=== PATIENT | male | born 1965 | race Caucasian/White ===

== ENCOUNTER 2016-08-30 10:01 | Emergency (ER) | payer MEDICAID ==
[~2016-08-30] VITALS: Ht 190.5 cm; Wt 92.0 kg
[~2016-08-30 10:01] MED LIST: GABA100C4 PO; MAGN400C2 PO; PERC10TA27 PO; POTA-267 PO; XANA1TAB6 PO; ZITH500T PO
[2016-08-30 10:07] VITALS: BP 132/83; PULSE 103; RESP 16; TEMP 98.4; O2SAT 92
[2016-08-30] MEDS ORDERED: PERC5TAB12 PO (10:31)
[2016-08-30] MEDS ORDERED: [UNRECOGNIZED DRUG - OTHER] PO (10:31)
[2016-08-30] MEDS ORDERED: ZOME4INJ PO (10:31)
[2016-08-30] MEDS ORDERED: HYDR-3535 PO (10:31)
--- NOTE | 2016-08-30 10:35 | PD ---
HPI Chief Complaint: Musculoskeletal Complaint Time Seen by Provider: 10:26 Travel History International Travel<30 days: No Contact w/Intl Traveler<30days: No Traveled to known affect area: No History of Present Illness HPI 50-year-old male with history of lymphoma and recent diagnosis a urine half ago of arrhythmia type of leukemia with agranulocytosis currently following up at [facility], has history of chronic intermittent joint and lymph node swelling, presents to the ER today for 4 days history of right knee swelling worse with movement that started on his own. He states that it often happens when he is sitting in a car. He denies any injuries. He denies any new fevers , vomiting, or any other symptoms. He states that it usually does not get this bad and he had talked to his pain management doctor and has been told to come to the ER to get it "drained". Patient states that his pain is currently a 10 out of 10. He has been using several pain medications previously prescribed but it is not significantly improving pain. He states that the last time he had something similar to this with knee swelling, it took 2 Months to go away. Modifying Factors: None Associated Signs & Symptoms: Right knee swelling for 4 days Risk Factors: History of leukemia with agranulocytosis PFSH Past Medical History Arthritis: No Asthma: No Autoimmune Disease: No Blood Disorders: No Anxiety: Yes Depression: Yes Heart Rhythm Problems: No Cancer: Yes (T GRANULAR LYMPHOCYTOSIS) Cardiovascular Problems: Yes High Cholesterol: Yes Chest Pain: Yes Congestive Heart Failure: No COPD: No Cerebrovascular Accident: No Diabetes: Yes (borderline) Diminished Hearing: No Endocrine: No Gastrointestinal Disorders: No GERD: No Genitourinary: No Headaches: No Hepatitis: No Hiatal Hernia: No Hypertension: No Immune Disorder: No Implanted Vascular Access Dvce: No Musculoskeletal: Yes Neurologic: Yes Psychiatric: Yes (BIPOLAR) Reproductive: No Respiratory: Yes Immunizations Current: Yes Migraines: No Seizures: No Sleep Apnea: No Ulcer: No Past Surgical History Abdominal Surgery: Yes (SPLENECTOMY) AICD: No Cardiac Surgery: Yes (heart cath) Ear Surgery: No Endocrine Surgery: No Eye Surgery: No Genitourinary Surgery: No Gynecologic Surgery: No Neurologic Surgery: No Oral Surgery: No Pacemaker: No Thoracic Surgery: Yes Other Surgery: Yes Social History Alcohol Use: No Tobacco Use: Yes (1 ppd) Substance Use: No Allergies-Medications (Allergen,Severity, Reaction): Coded Allergies: Penicillin (Verified Allergy, Unknown, Anaphylaxis, 08/30/16) Reported Meds & Prescriptions Reported Meds & Active Scripts Active Reported [revlomine] 1 Tab PO DIRECTED Zometa Inj (Zoledronic Acid) 4 Mg/100 Ml Inj 4 Mg PO QOD Percocet (Oxycodone-Acetaminophen) 5-325 mg Tab 1 Tab PO Q4H PRN Lortab (Hydrocodone-Acetaminophen) 10-325 Mg Tab 1 Tab PO Q4H PRN Review of Systems Except as stated in HPI: all other systems reviewed are Neg Physical Exam Narrative GENERAL: Well-developed middle age white male patient currently not in acute distress on evaluation. He tries to keep his right leg from bending as he seats himself in the bed. Awake, alert, oriented 3. SKIN: Focused skin assessment warm/dry. HEAD: Atraumatic. Normocephalic. EYES: Pupils equal and round. No scleral icterus. No injection or drainage. ENT: No nasal bleeding or discharge. Mucous membranes pink and moist. NECK: Trachea midline. No JVD. CARDIOVASCULAR: Regular rate and rhythm. No murmur appreciated. RESPIRATORY: No accessory muscle use. Clear to auscultation. Breath sounds equal bilaterally. GASTROINTESTINAL: Abdomen soft, non-tender, nondistended. Hepatic and splenic margins not palpable. MUSCULOSKELETAL: No obvious deformities. No clubbing. No cyanosis. No edema. NEUROLOGICAL: Awake and alert. No obvious cranial nerve deficits. Motor grossly within normal limits. Normal speech. PSYCHIATRIC: Appropriate mood and affect; insight and judgment normal. Right leg: There is notable edema and joint effusion of the right knee. No crepitus or other deformities identified. Neurovascularly intact. He is unable to range right knee secondary to pain. Data Data Last Documented VS Vital Signs Date Time Temp Pulse Resp B/P Pulse Ox O2 Delivery O2 Flow Rate FiO2 08/30/16 10:07 98.4 103 16 132/83 92 Orders Complete Blood Count With Diff (08/30/16 10:26) Basic Metabolic Panel (Bmp) (08/30/16 10:26) Fluid Culture And Gram Stain (08/30/16 10:26) Synovial Fl Cell Count + Diff (08/30/16 10:28) Synovial Fluid Crystals (08/30/16 10:28) Synovial Fluid Total Protein (08/30/16 10:28) Knee, Complete (4vws) (08/30/16 10:35) Hydromorphone Pf Inj (Dilaudid Pf Inj) (08/30/16 10:45) Ondansetron Inj (Zofran Inj) (08/30/16 10:45) Lidocaine 1% Inj (50 Ml) (Xylocaine 1% I (08/30/16 11:45) Blood Culture (08/30/16 12:33) Ceftriaxone Inj (Rocephin Inj) (08/30/16 12:45) Vancomycin Inj (Vancomycin Inj) (08/30/16 12:45) Labs Laboratory Tests Test 08/30/16 08/30/16 10:54 11:57 White Blood Count 18.5 TH/MM3 Red Blood Count 5.70 MIL/MM3 Hemoglobin 17.1 GM/DL Hematocrit 52.2 % Mean Corpuscular Volume 91.6 FL Mean Corpuscular Hemoglobin 30.0 PG Mean Corpuscular Hemoglobin 32.7 % Concent Red Cell Distribution Width 14.3 % Platelet Count 525 TH/MM3 Mean Platelet Volume 8.1 FL Neutrophils (%) (Auto) 66.5 % Lymphocytes (%) (Auto) 23.3 % Monocytes (%) (Auto) 6.2 % Eosinophils (%) (Auto) 2.1 % Basophils (%) (Auto) 1.9 % Neutrophils # (Auto) 12.2 TH/MM3 Lymphocytes # (Auto) 4.3 TH/MM3 Monocytes # (Auto) 1.1 TH/MM3 Eosinophils # (Auto) 0.4 TH/MM3 Basophils # (Auto) 0.4 TH/MM3 CBC Comment DIFF FINAL Differential Comment Sodium Level 138 MEQ/L Potassium Level 3.4 MEQ/L Chloride Level 101 MEQ/L Carbon Dioxide Level 28.1 MEQ/L Anion Gap 9 MEQ/L Blood Urea Nitrogen 9 MG/DL Creatinine 0.93 MG/DL Estimat Glomerular Filtration 86 ML/MIN Rate Random Glucose 116 MG/DL Calcium Level 9.3 MG/DL Synovial Fluid Color RED Synovial Fluid Appearance MODERATE Synovial Fluid WBC 65339 /MM3 Synovial Fluid RBC 02270 /MM3 Synovial Fluid Neutrophils 85 % Synovial Fluid Lymphocytes 14 % Synovial Fluid Monocytes 1 % MDM Medical Decision Making Medical Screen Exam Complete: Yes Emergency Medical Condition: Yes Medical Record Reviewed: Yes Interpretation(s) Laboratory Tests Test 08/30/16 08/30/16 10:54 11:57 White Blood Count 18.5 TH/MM3 (4.0-11.0) Hemoglobin 17.1 GM/DL (13.0-17.0) Hematocrit 52.2 % (39.0-51.0) Platelet Count 525 TH/MM3 (150-450) Neutrophils # (Auto) 12.2 TH/MM3 (1.8-7.7) Monocytes # (Auto) 1.1 TH/MM3 (0-0.9) Basophils # (Auto) 0.4 TH/MM3 (0-0.2) Potassium Level 3.4 MEQ/L (3.5-5.1) Estimat Glomerular Filtration 86 ML/MIN (>89) Rate Random Glucose 116 MG/DL (74-106) Synovial Fluid Color RED (STRAW) Synovial Fluid Appearance MODERATE (CLEAR) Synovial Fluid WBC 96807 /MM3 (0-200) Synovial Fluid RBC 03718 /MM3 (0-0) Synovial Fluid Neutrophils 85 % (0-25) Differential Diagnosis Right knee painacute on chronic joint effusions versus gouty arthritis versus septic arthritis Narrative Course I have talked to the patient regarding concern for possible septic arthritis. However, there is also concerned that with his history, it increases to a chance that we can introduce infection if we tapped the knee. Patient states understanding, would like me to tap the knee to rule out infection and also for for some relief of the pressure. Procedure was done draining 30 cc of initially blood-tinged fluid which cleared to a straw-colored. Fluid was sent for laboratory analysis. It shows elevated neutrophil counts of 13,000. The case was discussed with Dr. Frank biometrics consultant for orthopedics and he states that he does not think that this is secondary to septic arthritis and that this is inflammatory change. At this point, patient had been given ceftriaxone as precaution IV in the ER. He has taken Keflex in the past without issues. Dr. Frank also recommends heat application. My plan would be to release patient with follow-up to his physician and all colleges. Return for any worsening in pain, fevers, symptoms as needed. The plan has discussed with the patient and he states understanding. Continue using current pain medication as needed for pain. Decreased weightbearing on the right leg. Elevate but did not use ice. Procedures Procedure Narrative Right knee arthrocentesis. Patient's right knee was placed in a mildly flexed position using towels. Area was cleaned with iodine. And 2 cc of 1% lidocaine local was given to the right lateral knee. 18-gauge needle was used to access the joint and 30 cc of fluid was drained. Sent for analysis. Gauze was placed over area and Pramod bandage was used to give compression. Patient tolerated procedure well. Diagnosis Primary Impression: Effusion, right knee Disposition: 01 DISCHARGE HOME Condition: Stable Jamel Marie MD Aug 30, 2016 10:35
[2016-08-30] MEDS ORDERED: ONDANSETRON HCL 4 MG/2 ML VIAL IV PUSH ONE (10:45)
[2016-08-30] MEDS ORDERED: HYDROmorphone HCL PF 1 MG/ML VIAL IV PUSH ONE (10:45)
[2016-08-30 11:04] LABS: AUTOMATED NEUTROPHIL # 12.2 TH/MM3 (1.8-7.7); BASOPHIL # 0.4 TH/MM3 (0-0.2); BASOPHIL % 1.9 % (0.0-2.0); EOSINOPHIL # 0.4 TH/MM3 (0-0.4); EOSINOPHIL % 2.1 % (0.0-4.0); HEMATOCRIT 52.2 % (39.0-51.0); LYMPH % 23.3 % (9.0-44.0); LYMPHOCYTE # 4.3 TH/MM3 (1.0-4.8); MEAN CELL VOLUME 91.6 FL (80.0-100.0); MEAN CORPUSCULAR HGB CONC 32.7 % (32.0-36.0); MONO % 6.2 % (0.0-8.0); NEUT % 66.5 % (16.0-70.0); PLATELET COUNT 525 TH/MM3 (150-450); RED CELL DISTRIBUTION WIDTH 14.3 % (11.6-17.2); WHITE BLOOD COUNT 18.5 TH/MM3 (4.0-11.0)
[2016-08-30 11:05] LABS: HEMO FLAGS DIFF FINAL
[2016-08-30 11:17] LABS: POTASSIUM 3.4 MEQ/L (3.5-5.1)
[2016-08-30 11:21] LABS: BICARBONATE 28.1 MEQ/L (21.0-32.0)
[2016-08-30] MEDS ORDERED: LIDOCAINE HCL 1% 50 ML VIAL INFIL ONE (11:45)
--- NOTE | 2016-08-30 11:58 | RADHPO ---
EXAM DATE/TIME: 08/30/2016 10:48 [facility] COMPARISON: No previous studies available for comparison. INDICATIONS : Swelling and pain right knee, no known injury MEDICAL HISTORY : Leukemia. SURGICAL HISTORY : None. ENCOUNTER: Initial ACUITY: 4 - 6 days PAIN SCORE: 10/10 LOCATION: Right knee FINDINGS: The knee joint is properly aligned. There is chondrocalcinosis seen at the medial and lateral joint compartments. There is a moderate effusion. No fracture is seen. CONCLUSION: Chondrocalcinosis and a moderate joint effusion. Stevie Garcia MD on August 30, 2016 at 11:37 Board Certified Radiologist. This report was verified electronically.
[2016-08-30 12:32] LABS: WBC, SYNOVIAL FLUID 13100 /MM3 (0-200)
[2016-08-30] MEDS ORDERED: VANCOMYCIN INJ 1,000 MG in SODIUM CHLOR 0.9% 250 ML INJ 250 ML IV ONE (12:45)
[2016-08-30] MEDS ORDERED: cefTRIAXone INJ 2,000 MG in SODIUM CHLORIDE 0.9% INJ 100 ML IV ONE (12:45)
[2016-08-30 13:59] VITALS: BP 130/76
== END 2016-08-30 14:01 | disposition home or self-care (01) ==
LOC: PHED 10:01
DX: M25.461 Effusion, right knee (principal); E78.00 Pure hypercholesterolemia, unspecified; E11.9 Type 2 diabetes mellitus without complications
CPT/HCPCS: 20610; 73564; 80048; 84157; 85025; 87040; 87070; 87205; 89051; 89060; 96365; 96375; 99283; J0696; J1170; J2405

== ENCOUNTER 2016-10-22 15:49 | Emergency (ER) | payer MEDICAID ==
[~2016-10-22] VITALS: Ht 190.5 cm; Wt 91.0 kg
[~2016-10-22 15:49] MED LIST changes: -GABA100C4 PO; +HYDR-3535 PO; -MAGN400C2 PO; -PERC10TA27 PO; +PERC5TAB12 PO; -POTA-267 PO; -XANA1TAB6 PO; -ZITH500T PO; +ZOME4INJ PO; +[UNRECOGNIZED DRUG - OTHER] PO
[2016-10-22 15:53] VITALS: BP 100/75; PULSE 118; RESP 16; TEMP 97.8; O2SAT 93
[2016-10-22] MEDS ORDERED: OXYC30TA62 PO (16:15)
[2016-10-22] MEDS ORDERED: PERC10TA27 PO (16:15)
[2016-10-22] MEDS ORDERED: DOXY100C PO (16:15)
[2016-10-22] MEDS ORDERED: BACL10TA PO (16:16)
[2016-10-22] MEDS ORDERED: LIDOCAINE HCL 1% 50 ML VIAL INFIL ONE (16:30)
--- NOTE | 2016-10-22 17:04 | PD ---
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 Patient states swelling did not develop until last night. He denies any trauma or injury. States he went to his pain management physician this morning and they told him that he needs to come to the emergency room to have his knee drained. Patient takes OxyContin and Percocet daily for pain and took his medications this morning with minimal relief. He reports paresthesias when he ambulates. Patient reports extreme pain with full extension but minimal pain with flexion. Denies fever, chills, nausea, and vomiting. States he had similar symptoms one month ago and had an arthrocentesis performed here with moderate relief in symptoms. 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) Cardiovascular Problems: Yes High Cholesterol: Yes Chest Pain: Yes Congestive Heart Failure: No COPD: No Cerebrovascular Accident: No Diminished Hearing: No Endocrine: No Gastrointestinal Disorders: No GERD: No Genitourinary: No Headaches: No Hepatitis: No Hiatal Hernia: No Hypertension: No Immune Disorder: No Implanted Vascular Access Dvce: No Musculoskeletal: Yes Neurologic: Yes Psychiatric: Yes (BIPOLAR) Reproductive: No Respiratory: Yes Immunizations Current: Yes Migraines: No Seizures: No Sleep Apnea: No Ulcer: No Tetanus Vaccination: > 5 Years Influenza Vaccination: No Past Surgical History Abdominal Surgery: Yes (SPLENECTOMY) AICD: No Cardiac Surgery: Yes (heart cath) Ear Surgery: No Endocrine Surgery: No Eye Surgery: No Genitourinary Surgery: No Gynecologic Surgery: No Neurologic Surgery: No Oral Surgery: No Pacemaker: No Thoracic Surgery: Yes Other Surgery: Yes Social History Alcohol Use: Yes Tobacco Use: Yes (2 pk) Substance Use: No Allergies-Medications (Allergen,Severity, Reaction): Coded Allergies: Penicillin (Verified Allergy, Unknown, Anaphylaxis, 10/22/16) Reported Meds & Prescriptions Reported Meds & Active Scripts Active Ibuprofen 800 Mg Tab 800 Mg PO Q8H PRN Keflex (Cephalexin) 500 Mg Capsule 500 Mg PO Q6H 10 Days Reported Baclofen 10 Mg Tab 10 Mg PO Q8HR PRN Doxycycline Hyclate 100 Mg Cap 100 Mg PO TID Oxycontin (Oxycodone HCl) 30 Mg Tab 30 Mg PO Q8HR Percocet (Oxycodone-Acetaminophen) 10-325 mg Tab 1 Tab PO TID PRN Review of Systems Except as stated in HPI: all other systems reviewed are Neg Physical Exam Narrative GENERAL: Well-nourished, well-developed male in no acute distress. Afebrile. SKIN: Focused skin assessment warm/dry. No erythema or ecchymosis. HEAD: Normocephalic. EYES: No scleral icterus. No injection or drainage. NECK: Supple, trachea midline. No JVD or lymphadenopathy. CARDIOVASCULAR: Regular rate and rhythm without murmurs, gallops, or rubs. RESPIRATORY: Breath sounds equal bilaterally. No accessory muscle use. MUSCULOSKELETAL: No cyanosis. Mild to moderate edema of the right knee. Limited extension. Patient can flex to 90. 2+ dorsalis pedis pulse. Full range of motion of the ankle and foot. Extreme tenderness to palpation of medial and lateral subpatellar area. Data Data Last Documented VS Vital Signs Date Time Temp Pulse Resp B/P Pulse Ox O2 Delivery O2 Flow Rate FiO2 10/22/16 17:08 91 20 123/80 92 Room Air 10/22/16 15:53 97.8 Orders Lidocaine 1% Inj (50 Ml) (Xylocaine 1% I (10/22/16 16:30) Knee, Ltd (1 Or 2vws) (10/22/16 ) Oxycodone-Acetamin 7.5-325 Mg (Percocet (10/22/16 17:15) Ketorolac Inj (Toradol Inj) (10/22/16 17:45) Cephalexin (Keflex) (10/22/16 17:45) Synovial Fl Cell Count + Diff (10/22/16 17:43) Synovial Fluid Crystals (10/22/16 17:43) Synovial Fluid Glucose (10/22/16 17:43) Synovial Fluid Total Protein (10/22/16 17:43) Fluid Culture And Gram Stain (10/22/16 17:30) Labs Laboratory Tests Test 10/22/16 17:30 Synovial Fluid Color RED Synovial Fluid Appearance HAZY Synovial Fluid WBC 362 /MM3 Synovial Fluid RBC 5491 /MM3 Synovial Fluid Neutrophils 97 % Synovial Fluid Lymphocytes 3 % Synovial Fluid Crystals NONE MDM Medical Decision Making Medical Screen Exam Complete: Yes Emergency Medical Condition: Yes Medical Record Reviewed: Yes Differential Diagnosis Effusion, hemarthrosis, fracture, traumatic effusion, septic arthritis unlikely Narrative Course 50-year-old male presents to the emergency room for evaluation of recurrent right knee effusion. Patient has history of large granular lymphocytosis and states the cause of his effusions are likely due to the leukemia. He is afebrile well-appearing in the emergency room. Vital signs stable. Physical exam reveals moderate tenderness to palpation of the knee. No erythema or ecchymosis. Mild to moderate edema and slight effusion noted. Patient can flex 90 but cannot perform full extension secondary to pain. Right lower extremity is neurovascularly intact with 2+ dorsalis pedis pulse. After arthrocentesis, patient reported minimal relief in pain. He was then given Toradol and Keflex. Synovial fluid shows significantly fewer WBC and RBC as compared to previous joint aspiration though WBC count is spurious because of clot. I have no concern for septic arthritis. Because patient is immunocompromised an arthrocentesis was performed, he'll be discharged with prescription for Keflex. Also given ibuprofen. Told to follow-up with his primary care physician or return for worsening symptoms. He understands and agrees to plan. Procedures Procedure Narrative Right knee arthrocentesis: Patient's right knee was placed in a mildly flexed position using towels. Area was cleaned with Betadine and sterilely draped. 2 cc of 1% lidocaine was used to anesthetize the skin of the medial knee. An 18- gauge needle was used to access the joint and 3 cc of fluid was drained. Fluid was sent for analysis. Gauze and triple antibiotic ointment was placed over area and Pramod bandage was used to give compression. Patient tolerated procedure well. Diagnosis Primary Impression: Effusion, right knee Referrals: Primary Care Physician Patient Instructions: General Instructions, Swollen Knee Joint (ED) Additional Instructions: Rest and drink plenty of fluids. Take Keflex as directed, until gone. Take ibuprofen with food as directed, as needed for pain. Apply heat and ice to the affected area for 20 minutes at a time, as needed for pain and swelling. Follow-up with a primary care physician. Return to the emergency room for worsening symptoms. Scripts Ibuprofen 800 Mg [id number] Mg PO Q8H PRN (PAIN 1 TO 10 AND/OR AGITATION) #50 TAB Ref 0 Prov:Ishmael Owens MD 10/22/16 Cephalexin (Keflex)500 Mg [id number] Mg PO Q6H 10 Days Ref 0 Prov:Ishmael Owens MD 10/22/16 Disposition: 01 DISCHARGE HOME Condition: Stable Kika Welch Oct 22, 2016 17:04
[2016-10-22 17:08] VITALS: BP 123/80; PULSE 91; RESP 20; O2SAT 92
[2016-10-22] MEDS ORDERED: oxyCODONE/ACETAMINOPHEN 7.5 MG/325 MG TAB PO ONE (17:15)
[2016-10-22] MEDS ORDERED: CEPH-460 PO (17:32)
--- NOTE | 2016-10-22 17:34 | RADHPO ---
EXAM DATE/TIME: 10/22/2016 16:54 [facility] COMPARISON: No previous studies available for comparison. INDICATIONS : Patient has swelling in right knee since last week. MEDICAL HISTORY : Leukemia. SURGICAL HISTORY : Coronary artery stent. ENCOUNTER: Initial ACUITY: 1 week PAIN SCORE: 10/10 LOCATION: Right knee. FINDINGS: There is a small suprapatellar knee joint effusion. There is no acute fracture or dislocation of the right knee. Mild degenerative changes are noted involving the patellofemoral and femorotibial joints. CONCLUSION: 1. Small suprapatellar knee joint effusion. 2. Mild degenerative changes involving the patellofemoral and femorotibial joints. 3. No acute fracture or dislocation. Fabio Buchanan MD on October 22, 2016 at 17:19 Board Certified Radiologist. This report was verified electronically.
[2016-10-22] MEDS ORDERED: KETOROLAC TROMETHAMINE 60 MG/2 ML (IM) VIAL IM ONE (17:45)
[2016-10-22] MEDS ORDERED: CEPHALEXIN MONOHYDRATE 500 MG CAP PO ONE (17:45)
[2016-10-22] MEDS ORDERED: IBUP800T23 PO (17:56)
[2016-10-22 19:06] LABS: WBC, SYNOVIAL FLUID 362 /MM3 (0-200)
== END 2016-10-22 18:01 | disposition home or self-care (01) ==
LOC: PHEFT 15:49
DX: M25.461 Effusion, right knee (principal); E78.00 Pure hypercholesterolemia, unspecified; Z85.71 Personal history of Hodgkin lymphoma; Z88.0 Allergy status to penicillin; Z95.5 Presence of coronary angioplasty implant and graft
CPT/HCPCS: 20610; 73560; 82945; 84157; 87070; 87205; 89051; 89060; 96372; 99284; J1885

== ENCOUNTER 2016-12-04 14:38 | Inpatient (IN) | payer MEDICAID ==
[2016-12-04] VITALS (9 sets, daily range): BP systolic 112–144; BP diastolic 73–84; PULSE 80–109; RESP 15–22; TEMP 97.7–98.1; O2SAT 92–99
[~2016-12-04] VITALS: Ht 190.5 cm; Wt 93.4 kg
[~2016-12-04 14:38] MED LIST changes: +BACL10TA PO; +CEPH-460 PO; +DOXY100C PO; -HYDR-3535 PO; +IBUP800T23 PO; +OXYC30TA62 PO; +PERC10TA27 PO; -PERC5TAB12 PO; -ZOME4INJ PO; -[UNRECOGNIZED DRUG - OTHER] PO
[2016-12-04] MEDS ORDERED: XANA2TAB2 PO (15:14)
[2016-12-04] MEDS ORDERED: METR-1 PO (15:14)
[2016-12-04] MEDS ORDERED: ZOLO25TA PO (15:14)
[2016-12-04] MEDS ORDERED: [UNRECOGNIZED DRUG - OTHER] (15:14)
--- NOTE | 2016-12-04 15:26 | PD ---
HPI Chief Complaint: General Weakness Time Seen by Provider: 15:07 Travel History International Travel<30 days: No Contact w/Intl Traveler<30days: No Traveled to known affect area: No History of Present Illness HPI Patient is a 50-year-old male who presents the emergency department with complaint of generalized weakness. 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 Camacho. Patient states that he was told that he has "end -stage" and has 18 months to live. Patient has chronic generalized fatigue, malaise, nausea and vomiting, anorexia. Attributes all of the symptoms to his cancer. Patient states that yesterday he fell asleep on the couch and woke up at 4 AM this morning to urinate. He was unable to get up due to generalized fatigue and weakness. He rolled from the couch onto the floor, and was unable to get up. He was incontinent of urine 2. Yelling for family who came to his aid thereafter. Patient states he continues to feel weak and fatigued particularly in his right leg and right knee. These are chronic sites per patient for pain and weakness. None of his symptoms are new, but are certainly worse than they have been for the last several months. 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) Cardiovascular Problems: Yes High Cholesterol: Yes Chest Pain: Yes Congestive Heart Failure: No COPD: No Cerebrovascular Accident: Yes (X's 2) Diabetes: Yes (Borderline ) Patient Takes Glucophage: No Diminished Hearing: No Endocrine: No Gastrointestinal Disorders: No GERD: No Genitourinary: No Headaches: No Hepatitis: No Hiatal Hernia: No Hypertension: No Immune Disorder: No Implanted Vascular Access Dvce: No Medical other: Yes (HYPOKALEMIA) Musculoskeletal: Yes Neurologic: Yes Psychiatric: Yes (BIPOLAR) Reproductive: No Respiratory: Yes Immunizations Current: Yes Migraines: No Seizures: No Sleep Apnea: No Ulcer: No Past Surgical History Abdominal Surgery: Yes (SPLENECTOMY) AICD: No Cardiac Surgery: Yes (heart cath) Ear Surgery: No Endocrine Surgery: No Eye Surgery: No Genitourinary Surgery: No Gynecologic Surgery: No Neurologic Surgery: No Oral Surgery: No Pacemaker: No Thoracic Surgery: Yes Other Surgery: Yes Social History Alcohol Use: No Tobacco Use: Yes (2 pk) Substance Use: No Allergies-Medications (Allergen,Severity, Reaction): Coded Allergies: Penicillin (Verified Allergy, Severe, Anaphylaxis, 12/04/16) Reported Meds & Prescriptions Reported Meds & Active Scripts Active Reported [cancer meds] Xanax (Alprazolam) 2 Mg Tab 2 Mg PO Q8H PRN Zoloft (Sertraline HCl) 25 Mg Tab 25 Mg PO DAILY Flagyl (Metronidazole) 500 Mg Tab 500 Mg PO 5 TIMES A DAY Oxycontin (Oxycodone HCl) 30 Mg Tab 30 Mg PO Q8HR Percocet (Oxycodone-Acetaminophen) 10-325 mg Tab 1 Tab PO TID PRN Review of Systems Except as stated in HPI: all other systems reviewed are Neg Physical Exam Narrative GENERAL: Well-appearing male in no acute distress. SKIN: Focused skin assessment warm/dry. HEAD: Normocephalic. EYES:No scleral icterus. No injection or drainage. ENT: Mucous membranes pink and moist. NECK: Supple CARDIOVASCULAR: Mild tachycardia with heart rate 100 100s, regular rhythm. No murmur appreciated. RESPIRATORY: No accessory muscle use. Clear to auscultation. Breath sounds equal bilaterally. GASTROINTESTINAL: Abdomen soft, non-tender, nondistended. MUSCULOSKELETAL: No obvious deformities. No edema. NEUROLOGICAL: Awake and alert. 4+ out of 5 strength in the bilateral upper lower extremity's. No focal weakness. Normal speech. PSYCHIATRIC: Appropriate mood and affect; insight and judgment normal. Data Data Last Documented VS Vital Signs Date Time Temp Pulse Resp B/P Pulse Ox O2 Delivery O2 Flow Rate FiO2 12/04/16 15:34 99 Room Air 12/04/16 15:17 98.1 109 15 144/84 Orders Electrocardiogram (12/04/16 15:17) Basic Metabolic Panel (Bmp) (12/04/16 15:17) Complete Blood Count With Diff (12/04/16 15:17) Urinalysis - C+S If Indicated (12/04/16 15:17) Chest, Single Ap (12/04/16 15:17) Ecg Monitoring (12/04/16 15:17) Iv Access Insert/Monitor (12/04/16 15:17) Oximetry (12/04/16 15:17) Sodium Chloride 0.9% Flush (Ns Flush) (12/04/16 15:30) Labs Laboratory Tests Test 12/04/16 15:28 White Blood Count 32.9 TH/MM3 Red Blood Count 5.81 MIL/MM3 Hemoglobin 17.9 GM/DL Hematocrit 52.8 % Mean Corpuscular Volume 91.0 FL Mean Corpuscular Hemoglobin 30.8 PG Mean Corpuscular Hemoglobin 33.9 % Concent Red Cell Distribution Width 14.8 % Platelet Count 526 TH/MM3 Mean Platelet Volume 7.8 FL Neutrophils (%) (Auto) 65.8 % Lymphocytes (%) (Auto) 29.1 % Monocytes (%) (Auto) 2.7 % Eosinophils (%) (Auto) 1.3 % Basophils (%) (Auto) 1.1 % Neutrophils # (Auto) 21.6 TH/MM3 Lymphocytes # (Auto) 9.6 TH/MM3 Monocytes # (Auto) 0.9 TH/MM3 Eosinophils # (Auto) 0.4 TH/MM3 Basophils # (Auto) 0.4 TH/MM3 CBC Comment AUTO DIFF MDM Medical Decision Making Medical Screen Exam Complete: Yes Emergency Medical Condition: Yes Medical Record Reviewed: Yes Differential Diagnosis 50-year-old male with reported history of leukemia, "end-stage" here with worsening of his chronic malaise, weakness, fatigue. Differential includes advancing cancer, dehydration, electrolyte abnormality, symptomatic anemia, UTI , pneumonia. Narrative Course Patient placed on monitor, IV established and blood obtained. 12 lead EKG showed sinus rhythm with interventricular conduction delay. Portable chest x- ray, CBC, BMP, urinalysis remains pending. Jenny Fountain MD Dec 04, 2016 15:26 Jenny Fountain MD Dec 04, 2016 15:26
[2016-12-04] MEDS ORDERED: SODIUM CHLORIDE 0.9% FLUSH 10 ML FLUSH IVF PRN ×2 (15:30→16:45)
[2016-12-04 15:31] LABS: AUTOMATED NEUTROPHIL # 21.6 TH/MM3 (1.8-7.7); BASOPHIL # 0.4 TH/MM3 (0-0.2); BASOPHIL % 1.1 % (0.0-2.0); EOSINOPHIL # 0.4 TH/MM3 (0-0.4); EOSINOPHIL % 1.3 % (0.0-4.0); HEMATOCRIT 52.8 % (39.0-51.0); LYMPH % 29.1 % (9.0-44.0); LYMPHOCYTE # 9.6 TH/MM3 (1.0-4.8); MEAN CORPUSCULAR HEMOGLOBIN 30.8 PG (27.0-34.0); MEAN CORPUSCULAR HGB CONC 33.9 % (32.0-36.0); MONO % 2.7 % (0.0-8.0); NEUT % 65.8 % (16.0-70.0); PLATELET COUNT 526 TH/MM3 (150-450); RED BLOOD COUNT 5.81 MIL/MM3 (4.50-5.90); RED CELL DISTRIBUTION WIDTH 14.8 % (11.6-17.2); WHITE BLOOD COUNT 32.9 TH/MM3 (4.0-11.0)
[2016-12-04 15:37] LABS: HEMO FLAGS AUTO DIFF
[2016-12-04 15:52] LABS: BICARBONATE 22.7 MEQ/L (21.0-32.0)
[2016-12-04 15:52] LABS: BLOOD, URINE NEG (NEG); GLUCOSE,URINE NEG (NEG); KETONE, URINE NEG (NEG); NITRITE,URINE NEG (NEG)
[2016-12-04 15:54] LABS: POTASSIUM 1.8 MEQ/L (3.5-5.1)
[2016-12-04 16:02] LABS: COMMENT (UR) CULT NOT INDICATED; CULTURE IF INDICATED CULT NOT INDICATED; HYALINE CAST, URINE 0-2 /lpf (RARE); METHOD OF COLLECTION CLEAN CATCH; SQUAMOUS EPITHELIAL CELL URINE 0-5 /hpf (0-5); URINE COLOR YELLOW (YELLW/STRAW); WBC, URINE 0-2 /hpf (0-5)
--- NOTE | 2016-12-04 16:05 | PD ---
Physical Exam Narrative Patient was seen by ED physician and signed out to me. Data Data Last Documented VS Vital Signs Date Time Temp Pulse Resp B/P Pulse Ox O2 Delivery O2 Flow Rate FiO2 12/04/16 15:34 99 Room Air 12/04/16 15:17 98.1 109 15 144/84 Orders Electrocardiogram (12/04/16 15:17) Basic Metabolic Panel (Bmp) (12/04/16 15:17) Complete Blood Count With Diff (12/04/16 15:17) Urinalysis - C+S If Indicated (12/04/16 15:17) Chest, Single Ap (12/04/16 15:17) Ecg Monitoring (12/04/16 15:17) Iv Access Insert/Monitor (12/04/16 15:17) Oximetry (12/04/16 15:17) Sodium Chloride 0.9% Flush (Ns Flush) (12/04/16 15:30) Labs Laboratory Tests Test 12/04/16 12/04/16 15:28 15:41 White Blood Count 32.9 TH/MM3 Red Blood Count 5.81 MIL/MM3 Hemoglobin 17.9 GM/DL Hematocrit 52.8 % Mean Corpuscular Volume 91.0 FL Mean Corpuscular Hemoglobin 30.8 PG Mean Corpuscular Hemoglobin 33.9 % Concent Red Cell Distribution Width 14.8 % Platelet Count 526 TH/MM3 Mean Platelet Volume 7.8 FL Neutrophils (%) (Auto) 65.8 % Lymphocytes (%) (Auto) 29.1 % Monocytes (%) (Auto) 2.7 % Eosinophils (%) (Auto) 1.3 % Basophils (%) (Auto) 1.1 % Neutrophils # (Auto) 21.6 TH/MM3 Lymphocytes # (Auto) 9.6 TH/MM3 Monocytes # (Auto) 0.9 TH/MM3 Eosinophils # (Auto) 0.4 TH/MM3 Basophils # (Auto) 0.4 TH/MM3 CBC Comment AUTO DIFF Sodium Level 142 MEQ/L Potassium Level 1.8 MEQ/L Chloride Level 107 MEQ/L Carbon Dioxide Level 22.7 MEQ/L Anion Gap 12 MEQ/L Blood Urea Nitrogen 8 MG/DL Creatinine 1.30 MG/DL Estimat Glomerular Filtration 58 ML/MIN Rate Random Glucose 158 MG/DL Calcium Level 9.8 MG/DL Urine pH 6.0 Urine Protein TRACE mg/dL Urine Glucose (UA) NEG mg/dL Urine Ketones NEG mg/dL Urine Occult Blood NEG Urine Nitrite NEG Urine Bilirubin NEG Urine Leukocyte Esterase NEG MDM Supervised Visit with FARAZ: No Interpretation(s) 1602 p.m. CBC WBC 32.9. Hemoglobin 17.9. Hematocrit 52.8. Platelet 526. Potassium 1.8. UA is negative. Narrative Course Patient was seen by ED physician and signed out to me. KCl 20 mEq IV given 2. KCl 40 mEq by mouth given. Carlos Adkins MD Dec 04, 2016 16:04
[2016-12-04 16:06] LABS: BANDS 1 % (0-6); EOSINOPHILS 1 % (0-4); NEUTROPHIL # MANUAL DIFF 21.1 TH/MM3 (1.8-7.7); POLYS (SEG NEUTROPHILS) 63 % (16-70); SCAN/DIFF FINAL DIFF MANUAL; WBC DIFF SAMPLE 100
[2016-12-04] MEDS ORDERED: POTASSIUM CHLORIDE 20 MEQ CONTROLLED RELEASE TAB PO ONE (16:15)
[2016-12-04] MEDS: POTASSIUM CHLOR 20 MEQ PREMIX 100 ML IV SCH ×2 (16:16→19:44)
--- NOTE | 2016-12-04 16:32 | RADRPT ---
EXAM DATE/TIME: 12/04/2016 15:23 [facility] COMPARISON: CHEST PA & LAT, December 08, 2015, 0:48. INDICATIONS : Palpitations and general body weakness. MEDICAL HISTORY : Hypercholesterolemia. Myocardial infarction. Dibetes, Hypokalemia SURGICAL HISTORY : Coronary artery stent. Splenectomy. ENCOUNTER: Initial ACUITY: 1 day PAIN SCORE: 6/10 LOCATION: Bilateral chest FINDINGS: The lungs are clear without infiltrate, nodule, or mass except for linear scarring both lung bases wi th minimal superimposed linear atelectasis. There is no appreciable pleural effusion for technique. Heart and mediastinum are unremarkable. CONCLUSION: No acute cardiopulmonary disease. Liz Jain MD on December 04, 2016 at 16:30 Board Certified Radiologist. This report was verified electronically.
[2016-12-04] MEDS ORDERED: ONDANSETRON HCL 4 MG/2 ML VIAL IV PRN (16:45)
[2016-12-04] MEDS ORDERED: ACETAMINOPHEN 325 MG TAB PO PRN ×3 (16:45→17:15)
[2016-12-04] MEDS ORDERED: ALPRAZolam 1 MG TAB PO PRN ×2 (16:45→17:15)
[2016-12-04 16:59] LABS: MAGNESIUM 1.3 MG/DL (1.5-2.5)
[2016-12-04] MEDS ORDERED: NALOXONE HCL 0.4 MG/ML AMP IV PRN (17:15)
[2016-12-04] MEDS ORDERED: oxyCODONE HCL 10 MG CONTROLLED RELEASE TAB PO PRN (17:15)
[2016-12-04] MEDS ORDERED: SODIUM PHOSPHATE INJ 30 MMOL in SODIUM CHLOR 0.9% 250 ML INJ 250 ML IV ONE (17:15)
[2016-12-04] MEDS ORDERED: SODIUM CHLORIDE 0.9% FLUSH 10 ML FLUSH IV FLUSH PRN (17:15)
--- NOTE | 2016-12-04 17:22 | HHI.HP ---
[facility] Geri Martinez MD Admission Diagnosis severe hypokalemia. 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 The patient says he was diagnosed with cancer about a year and a half ago. He said that he was evaluated and found not to be a candidate for chemotherapy. He was also found not to be a candidate for bone marrow transplant. He says he has not candidate for any treatment and was told he has about 18 months left to live. He says he lives at home and generally doesn't ambulate with a walker but he will when he feels really weak. He said this morning he found all of a sudden he couldn't pull himself up. He had significantly increased weakness in his upper and lower extremities. The patient says that he does not take potassium pills regularly even though he was told he should. He does endorse significant weight loss recently. He says he has had many new lesions popping up all over his body. He has not been sleeping well. He has recently been prescribed anxiety medication on top of the chronic pain medications he receives. He denies any shortness of breath. He does have generalized body pain on a regular basis. Review of Systems Except as stated in HPI: all other systems reviewed are Neg Past Family Social History Past Medical History Hypertension Hyperlipidemia CVA Depression Hypokalemia T granular lymphocytosis Non-Hodgkin's lymphoma Past Surgical History Splenectomy in 2000 Thumb reattachment Allergies: Coded Allergies: Penicillin (Verified Allergy, Severe, Anaphylaxis, 12/04/16) Active Ordered Medications Current Medications Medications (Trade) Dose Ordered Sig/Elma Route Start Time Stop Time Status Last Admin Sodium Chloride 2 ml 2 ml UNSCH PRN IVF 12/04/16 15:30 (KCl 20 Meq Premix Inj) 100 ml @ 50 mls/hr Q2H IV 7/28/17 16:15 12/04/16 20:14 12/04/16 16:16 (Zoloft) 25 mg DAILY PO 12/05/16 09:00 (Zofran Inj) 4 mg Q6H PRN IV 12/04/16 16:45 (Tylenol) 650 mg Q4H PRN PO 12/04/16 16:45 (NS Flush) 2 ml BID IV FLUSH 12/04/16 21:00 (NS Flush) 2 ml UNSCH PRN IVF 12/04/16 16:45 Alprazolam 1 mg 1 mg Q8H PRN PO 12/04/16 17:15 (D5-1/2 NS + KCl 20 Meq Inj) 1,000 ml @ 100 mls/hr Q10H IV 12/04/16 17:06 (NS Flush) 2 ml UNSCH PRN IV FLUSH 12/04/16 17:15 (NS Flush) 2 ml BID IV FLUSH 12/04/16 21:00 (Tylenol) 650 mg Q4H PRN PO 12/04/16 17:15 UNV (Tylenol) 650 mg Q6H PRN PO 12/04/16 17:15 UNV (Roxicodone) 10 mg Q4H PRN PO 12/04/16 17:15 UNV (Roxicodone) 5 mg Q4H PRN PO 12/04/16 17:15 UNV (Narcan Inj) 0.4 mg UNSCH PRN IV 12/04/16 17:15 UNV (Patricia-Colace) 1 tab BID PO 12/04/16 21:00 UNV Oxycodone HCl 30 mg 30 mg Q8HR PRN PO 12/04/16 17:15 UNV Magnesium Sulfate/ Dextrose 100 ml @ 100 mls/hr Q1H IV 12/04/16 17:15 12/04/16 20:14 UNV (Sodium Phosphate Inj/NS 250 ml Inj) 260 ml @ 43.333 mls/ hr ONCE ONCE IV 12/04/16 17:15 12/04/16 23:14 UNV Family History Alcoholism Schizophrenia Bone cancer Multiple myeloma Leukemia CAD Social History He smokes 1PPD. Has rare alcohol use. Physical Exam Vital Signs Vital Signs Date Time Temp Pulse Resp B/P Pulse Ox O2 Delivery O2 Flow Rate FiO2 12/04/16 17:05 86 15 126/73 95 Room Air 12/04/16 15:34 99 Room Air 12/04/16 15:17 98.1 109 15 144/84 99 12/04/16 14:40 98.1 Physical Exam GENERAL: Well-appearing male in no acute distress. SKIN: Focused skin assessment warm/dry. HEAD: Normocephalic. EYES:No scleral icterus. No injection or drainage. ENT: Mucous membranes pink and moist. NECK: Supple. CARDIOVASCULAR: Tachycardic. No murmur appreciated. RESPIRATORY: No accessory muscle use. Clear to auscultation. Breath sounds equal bilaterally. GASTROINTESTINAL: Abdomen soft, non-tender, nondistended. MUSCULOSKELETAL: No obvious deformities. No edema. NEUROLOGICAL: Awake and alert. 4+ out of 5 strength in the bilateral upper lower extremity's. 3/5 strength in the right lower extremity, 4/5 in the right. Normal speech. PSYCHIATRIC: Appropriate mood and affect; insight and judgment normal. Laboratory Laboratory Tests Test 12/04/16 12/04/16 15:28 15:41 White Blood Count 32.9 Red Blood Count 5.81 Hemoglobin 17.9 Hematocrit 52.8 Mean Corpuscular Volume 91.0 Mean Corpuscular Hemoglobin 30.8 Mean Corpuscular Hemoglobin 33.9 Concent Red Cell Distribution Width 14.8 Platelet Count 526 Mean Platelet Volume 7.8 Neutrophils (%) (Auto) 65.8 Lymphocytes (%) (Auto) 29.1 Monocytes (%) (Auto) 2.7 Eosinophils (%) (Auto) 1.3 Basophils (%) (Auto) 1.1 Neutrophils # (Auto) 21.6 Lymphocytes # (Auto) 9.6 Monocytes # (Auto) 0.9 Eosinophils # (Auto) 0.4 Basophils # (Auto) 0.4 CBC Comment AUTO DIFF Differential Total Cells 100 Counted Neutrophils % (Manual) 63 Band Neutrophils % 1 Lymphocytes % 30 Monocytes % 5 Eosinophils % 1 Neutrophils # (Manual) 21.1 Differential Comment FINAL DIFF MANUAL Sodium Level 142 Potassium Level 1.8 Chloride Level 107 Carbon Dioxide Level 22.7 Anion Gap 12 Blood Urea Nitrogen 8 Creatinine 1.30 Estimat Glomerular Filtration 58 Rate Random Glucose 158 Calcium Level 9.8 Phosphorus Level 1.9 Magnesium Level 1.3 Urine Collection Type CLEAN CATCH Urine Color YELLOW Urine Turbidity CLEAR Urine pH 6.0 Urine Specific Palmer 1.018 Urine Protein TRACE Urine Glucose (UA) NEG Urine Ketones NEG Urine Occult Blood NEG Urine Nitrite NEG Urine Bilirubin NEG Urine Leukocyte Esterase NEG Urine WBC 0-2 Urine Squamous Epithelial 0-5 Cells Urine Hyaline Casts 0-2 Microscopic Urinalysis Comment CULT NOT INDICATED Result Diagram: 12/04/16 1528 12/04/16 1528 Imaging Last Impressions Chest X-Ray 12/04/16 1517 Signed Impressions: Service Date/Time: Sunday, December 04, 2016 15:23 - CONCLUSION: No acute cardiopulmonary disease. Liz Jain MD Assessment and Plan Assessment and Plan Severe hypokalemia Chronic problem. The patient does not take potassium supplementation regularly for whatever reason. Hypokalemia may be secondary to renal dysfunction caused by early lithium exposure as a child. - continue IV and PO KCl replacement as ordered by the ED. - Mg and phos also found to be low, will replete with IV supplementation. - start standing IVFs with 20 meq with KCl. - telemetry. - follow BMP closely. 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 The patient is interested in hospice but does not want to pursue it quite yet. - supportive care. - ADAT. - PT/ OT. - case management consult. The pt would like to pursue home health care. - pain control with a bowel regimen. - Xanax as needed for anxiety. Pancytosis S/t above. - monitor CBC as needed. Hyperglycemia Possibly a stress reaction. - follow BMP. Hypertension Blood pressure is elevated. Likely exacerbated by pain. - Pain control as needed. - Vasotec as needed. PPx: SCDs Code Status DNR Discussed Condition With Dr. Adkins, pt, pt's family Physician Certification 2 Midnight Certification Type: Admission for Inpatient Services Order for Inpatient Services The services are ordered in accordance with Medicare regulations or non- Medicare payer requirements, as applicable. In the case of services not specified as inpatient-only, they are appropriately provided as inpatient services in accordance with the 2-midnight benchmark. Estimated LOS (days): 2 days is the estimated time the patient will need to remain in the hospital, assuming treatment plan goals are met and no additional complications. Post-Hospital Plan: Home Health Cameron Mistry DO Dec 04, 2016 17:22
[2016-12-04] MEDS: DOCUSATE SODIUM 50 MG/SENNA 8.6 MG TAB PO SCH ×2 (19:42→19:50)
[2016-12-04] MEDS: D5-1/2 NS + KCL 20 MEQ INJ 1,000 ML IV SCH (19:43)
[2016-12-04] MEDS: MAGNESIUM SULFATE 1 GM PREMIX 100 ML IV SCH ×3 (19:44→21:55)
[2016-12-04] MEDS: SODIUM CHLORIDE 0.9% FLUSH 10 ML FLUSH IV FLUSH SCH ×2 (19:45)
[2016-12-05] VITALS (12 sets, daily range): BP systolic 98–128; BP diastolic 61–75; PULSE 52–76; RESP 14–27; TEMP 97.4–98.7; O2SAT 91–96
[2016-12-05] MEDS: D5-1/2 NS + KCL 20 MEQ INJ 1,000 ML IV SCH ×2 (01:22→08:02)
[2016-12-05 06:31] LABS: HEMATOCRIT 47.5 % (39.0-51.0); MEAN CELL VOLUME 91.8 FL (80.0-100.0); MEAN CORPUSCULAR HEMOGLOBIN 30.5 PG (27.0-34.0); MEAN CORPUSCULAR HGB CONC 33.3 % (32.0-36.0); PLATELET COUNT 478 TH/MM3 (150-450); RED BLOOD COUNT 5.17 MIL/MM3 (4.50-5.90); RED CELL DISTRIBUTION WIDTH 14.7 % (11.6-17.2); REVIEW FLAG FINAL; WHITE BLOOD COUNT 22.2 TH/MM3 (4.0-11.0)
[2016-12-05 07:00] LABS: BICARBONATE 29.8 MEQ/L (21.0-32.0); MAGNESIUM 2.3 MG/DL (1.5-2.5)
[2016-12-05 07:02] LABS: POTASSIUM 2.2 MEQ/L (3.5-5.1)
[2016-12-05] MEDS: SERTRALINE HCL 50 MG TAB PO SCH (08:02)
[2016-12-05] MEDS: DOCUSATE SODIUM 50 MG/SENNA 8.6 MG TAB PO SCH ×2 (08:03→20:54)
[2016-12-05] MEDS: SODIUM CHLORIDE 0.9% FLUSH 10 ML FLUSH IV FLUSH SCH ×4 (08:03→20:55)
[2016-12-05] MEDS ORDERED: POTASSIUM CHLOR 20 MEQ PREMIX 100 ML IV ONE (08:15)
[2016-12-05] MEDS: POTASSIUM CHLORIDE 20 MEQ CONTROLLED RELEASE TAB PO SCH ×3 (09:43→17:54)
[2016-12-05] MEDS ORDERED: MAGNESIUM SULFATE INJ 4 GM in SODIUM CHLORIDE 0.9% INJ 92 ML IV PRN (10:15)
[2016-12-05] MEDS ORDERED: POTASSIUM CHLORIDE 25 MEQ EFFERVESCENT TAB PO PRN (10:15)
[2016-12-05] MEDS ORDERED: MAGNESIUM OXIDE 400 MG TAB PO PRN (10:15)
[2016-12-05] MEDS ORDERED: POTASSIUM PHOSPHATE MONOBASIC 500 MG TAB PO/TUBE PRN (10:15)
[2016-12-05] MEDS ORDERED: POTASSIUM PHOSPHATE MONOBASIC 500 MG TAB PO PRN (10:15)
[2016-12-05] MEDS ORDERED: POTASSIUM PHOSPHATE INJ 30 MMOL in SODIUM CHLOR 0.9% 250 ML INJ 250 ML IV PRN (10:15)
[2016-12-05] MEDS ORDERED: POTASSIUM CHLOR 40 MEQ PREMIX 100 ML IV PRN ×2 (10:15)
[2016-12-05] MEDS ORDERED: SODIUM PHOSPHATE INJ 30 MMOL in SODIUM CHLOR 0.9% 250 ML INJ 240 ML IV PRN (10:15)
[2016-12-05] MEDS ORDERED: POTASSIUM CHLOR 20 MEQ PREMIX 100 ML IV PRN (10:15)
--- NOTE | 2016-12-05 10:20 | HHI.PR ---
Subjective Remarks The patient was concerned that he couldn't move his legs much at all. He said he was told that his dominant leg would eventually go first. He feels weak in his upper extremities as well. Discussed with nursing at the bedside. Objective Vitals Vital Signs Date Time Temp Pulse Resp B/P Pulse Ox O2 Delivery O2 Flow Rate FiO2 12/05/16 08:00 94 Nasal Cannula 4.50 12/05/16 08:00 97.4 58 18 98/66 91 12/05/16 04:00 52 12/05/16 04:00 97.6 52 14 99/64 92 12/05/16 02:00 56 12/05/16 00:00 60 12/05/16 00:00 98.2 60 15 104/61 93 12/04/16 22:16 92 Nasal Cannula 4.00 12/04/16 22:00 88 12/04/16 20:01 93 21 12/04/16 20:00 82 12/04/16 20:00 97.7 82 22 112/73 93 12/04/16 17:52 80 12/04/16 17:05 86 15 126/73 95 Room Air 12/04/16 15:34 99 Room Air 12/04/16 15:17 98.1 109 15 144/84 99 12/04/16 14:40 98.1 I/O 12/04/16 12/04/16 12/04/16 12/05/16 12/05/16 12/05/16 07:00 15:00 23:00 07:00 15:00 23:00 Intake Total 303 ml 1217 ml Output Total 250 ml 450 ml Balance 53 ml 767 ml Intake IV Total 303 ml 1217 ml Output Urine Total 250 ml 450 ml Result Diagram: 12/05/16 0600 12/05/16 0600 Imaging Last Impressions Chest X-Ray 12/04/16 1517 Signed Impressions: Service Date/Time: Sunday, December 04, 2016 15:23 - CONCLUSION: No acute cardiopulmonary disease. Liz Jain MD Objective Remarks GENERAL: Well-appearing male in no acute distress. SKIN: Focused skin assessment warm/dry. HEAD: Normocephalic. EYES:No scleral icterus. No injection or drainage. ENT: Mucous membranes pink and moist. NECK: Supple. CARDIOVASCULAR: Tachycardic. No murmur appreciated. RESPIRATORY: No accessory muscle use. Clear to auscultation. Breath sounds equal bilaterally. GASTROINTESTINAL: Abdomen soft, non-tender, nondistended. MUSCULOSKELETAL: No obvious deformities. No edema. NEUROLOGICAL: Awake and alert. 4+ out of 5 strength in the bilateral upper lower extremity's. 3/5 strength in the right lower extremity, 4/5 in the right. Normal speech. PSYCHIATRIC: Slightly anxious. Medications and IVs Current Medications Medications (Trade) Dose Ordered Sig/Elma Route Start Time Stop Time Status Last Admin (NS Flush) 2 ml UNSCH PRN IVF 12/04/16 15:30 (Zoloft) 25 mg DAILY PO 12/05/16 09:00 12/05/16 08:02 (Zofran Inj) 4 mg Q6H PRN IV 12/04/16 16:45 (Tylenol) 650 mg Q4H PRN PO 12/04/16 16:45 (NS Flush) 2 ml BID IV FLUSH 12/04/16 21:00 12/05/16 08:03 (NS Flush) 2 ml UNSCH PRN IVF 12/04/16 16:45 Alprazolam 1 mg 1 mg Q8H PRN PO 12/04/16 17:15 12/04/16 19:42 (D5-1/2 NS + KCl 20 Meq Inj) 1,000 ml @ 100 mls/hr Q10H IV 12/04/16 17:06 12/05/16 08:02 (NS Flush) 2 ml UNSCH PRN IV FLUSH 12/04/16 17:15 (NS Flush) 2 ml BID IV FLUSH 12/04/16 21:00 12/05/16 08:03 (Tylenol) 650 mg Q4H PRN PO 12/04/16 17:15 (Tylenol) 650 mg Q6H PRN PO 12/04/16 17:15 (Roxicodone) 10 mg Q4H PRN PO 12/04/16 17:15 12/04/16 19:42 (Roxicodone) 5 mg Q4H PRN PO 12/04/16 17:15 (Narcan Inj) 0.4 mg UNSCH PRN IV 12/04/16 17:15 (Patricia-Colace) 1 tab BID PO 12/04/16 21:00 (OxyCONTIN CR) 30 mg Q8HR PRN PO 12/04/16 17:15 (KCl) 40 meq Q4H PO 12/05/16 09:00 12/05/16 17:01 12/05/16 09:43 A/P Assessment and Plan Severe hypokalemia Chronic problem. The patient does not take potassium supplementation regularly for whatever reason. Hypokalemia may be secondary to renal dysfunction caused by early lithium exposure as a child. Potassium level only improved to 2.2 from 1.8. - continue IV and PO KCl replacement. Will order ICU electrolyte replacement protocol. - start standing IVFs with 20 meq with KCl. - telemetry. - follow BMP multiple times per day. Hypomagnesemia/ hypophosphatemia Resolved with IV supplementation. - Continue to monitor. 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 The patient is interested in hospice but does not want to pursue it quite yet. - supportive care. - ADAT. - PT/ OT. - case management consult. The pt would like to pursue home health care. - pain control with a bowel regimen. - Xanax as needed for anxiety. - Check a vitamin B12 level and TSH. Pancytosis S/t above. - monitor CBC as needed. Hyperglycemia Possibly a stress reaction. - follow BMP. Hypertension Blood pressure is elevated. Likely exacerbated by pain. - Pain control as needed. - Vasotec as needed. PPx: SCDs Discharge Planning Continue to monitor in the ICU Cameron Mistry DO Dec 05, 2016 10:20
--- NOTE | 2016-12-05 14:06 | RADRPT ---
EXAM DATE/TIME: 12/05/2016 13:31 [facility] COMPARISON: CHEST SINGLE AP, December 04, 2016, 15:23. INDICATIONS : Short of breath, weakness MEDICAL HISTORY : Myocardial infarction. SURGICAL HISTORY : Coronary artery stent. Splenectomy. ENCOUNTER: Subsequent ACUITY: 3 days PAIN SCORE: 0/10 LOCATION: Bilateral chest FINDINGS: There is elevation of the right hemidiaphragm. Bibasilar atelectasis is stable. The heart is stable . No focal alveolar consolidation is noted. CONCLUSION: 1. Bibasilar atelectasis. 2. Persistent elevation right hemidiaphragm. Fabio Buchanan MD on December 05, 2016 at 14:01 Board Certified Radiologist. This report was verified electronically.
[2016-12-05] MEDS: POTASSIUM CHLOR 20 MEQ PREMIX 100 ML IV PRN ×3 (15:51→21:35)
--- NOTE | 2016-12-05 19:11 | EKG ---
Date Performed: 12/04/2016 Time Performed: 15:36:27 PTAGE: 50 years EKG: Sinus rhythm MODERATE INTRAVENTRICULAR CONDUCTION DELAY NONSPECIFIC ST & T-WAVE ABNORMALITY BORDERLINE ECG Compar ed to PREVIOUS TRACING , the intraventricular conduction disturbance is slightly more promient and the ST-T changes are more prominent. PREVIOUS TRACIN06/13/2012 23.29 DOCTOR: Mike Resendiz Interpretating Date/Time 12/07/2016 06:57:10
[2016-12-06] VITALS (17 sets, daily range): BP systolic 102–156; BP diastolic 57–86; PULSE 68–110; RESP 18–34; TEMP 97.3–98.9; O2SAT 89–94
[2016-12-06] MEDS: POTASSIUM CHLOR 20 MEQ PREMIX 100 ML IV PRN ×5 (00:13→15:29)
[2016-12-06] MEDS: CHLORHEXIDINE GLUCONATE 2 % 1 PACK (2 CLOTHS)(taper/protocol) TOPICAL SCH (04:00)
[2016-12-06 04:37] LABS: POTASSIUM 3.2 MEQ/L (3.5-5.1)
[2016-12-06 04:41] LABS: BICARBONATE 28.4 MEQ/L (21.0-32.0)
[2016-12-06] MEDS ORDERED: CHLORHEXIDINE GLUCONATE 2 % 1 PACK (2 CLOTHS)(extra cloths) TOPICAL PRN (07:00)
[2016-12-06] MEDS: SERTRALINE HCL 50 MG TAB PO SCH (08:23)
[2016-12-06] MEDS: DOCUSATE SODIUM 50 MG/SENNA 8.6 MG TAB PO SCH ×2 (08:25→21:56)
[2016-12-06] MEDS: SODIUM CHLORIDE 0.9% FLUSH 10 ML FLUSH IV FLUSH SCH ×2 (08:25→21:56)
[2016-12-06] MEDS ORDERED: WHEEMIS3 (08:57)
[2016-12-06] MEDS ORDERED: GETGO ROLLING W1 MI1 (08:57)
[2016-12-06] MEDS ORDERED: CYANOCOBALAMIN 1000 MCG/ML VIAL IM ONE (10:00)
[2016-12-06] MEDS ORDERED: D5-1/2 NS + KCL 20 MEQ INJ 1,000 ML IV SCH (11:45)
[2016-12-06 12:22] LABS: MAGNESIUM 1.6 MG/DL (1.5-2.5)
[2016-12-06] MEDS ORDERED: IOHEXOL 350 MG/ML 10 ML VIAL (for RAD DIAG) IV ONE (12:41)
--- NOTE | 2016-12-06 12:55 | RADRPT ---
EXAM DATE/TIME: 12/06/2016 12:15 [facility] COMPARISON: No previous studies available for comparison. INDICATIONS : Decreased oxygen saturation level. Evaluate for pulmonary embolism. IV CONTRAST: 70 cc Omnipaque 350 (iohexol) IV RADIATION DOSE: 18.08 CTDIvol (mGy) MEDICAL HISTORY : Cerebrovascular disease. Leukemia. Hypertension.Hypokalemia. SURGICAL HISTORY : Splenectomy. ENCOUNTER: Initial ACUITY: 1 day PAIN SCALE: 0/10 LOCATION: chest TECHNIQUE: Volumetric scanning of the chest was performed using a pulmonary embolism protocol MIP images were re constructed. Using automated exposure control and adjustment of the mA and/or kV according to patien t size, radiation dose was kept as low as reasonably achievable to obtain optimal diagnostic quality images. DICOM format image data is available electronically for review and comparison. Follow-up recommendations for incidentally detected pulmonary nodules are based at a minimum on nodul e size and patient risk factors according to Fleischner Society Guidelines. FINDINGS: PULMONARY ARTERIES: No filling defects are seen in the pulmonary arteries through the segmental level. LUNGS: Bibasilar patchiness is noted consistent with atelectasis and/or infiltrates. Clinical correlation is recommended. Scattered emphysematous changes are noted predominantly within the upper lobes. No pulm onary nodule or mass is noted. PLEURAE: There is no pleural thickening or pleural effusion. MEDIASTINUM: There is good visualization of the great vessels of the middle mediastinum. No evidence of mediastin al or hilar adenopathy/mass. MUSCULOSKELETAL: Within normal limits for patient age. MISCELLANEOUS: The visualized upper abdominal organs demonstrate no acute abnormality. There is an enlarged fatty li suzie. There is elevation of the right hemidiaphragm. CONCLUSION: 1. No evidence of pulmonary embolism. 2. Bibasilar patchiness consistent with atelectasis and/or mild infiltrates. Clinical correlation is recommended. 3. Scattered emphysematous changes predominantly within the upper lobes. 4. Elevation of the right hemidiaphragm. 5. Enlarged fatty liver. Faboi Buchanan MD on December 06, 2016 at 12:48 Board Certified Radiologist. This report was verified electronically.
--- NOTE | 2016-12-06 13:21 | HHI.PR ---
Subjective Remarks The patient really wanted to go home today. He said he would like home oxygen. He said he would go to outpatient physical therapy if he had to. He denies any chest pain. Discussed with nursing. Objective Vitals Vital Signs Date Time Temp Pulse Resp B/P Pulse Ox O2 Delivery O2 Flow Rate FiO2 12/06/16 10:00 90 12/06/16 09:01 78 23 102/75 89 12/06/16 08:01 97.3 68 18 108/72 91 12/06/16 08:00 69 12/06/16 06:00 70 18 115/73 91 12/06/16 06:00 74 12/06/16 04:00 98.3 70 18 108/70 91 12/06/16 04:00 70 12/06/16 02:00 74 12/06/16 02:00 74 20 92 12/06/16 00:00 84 34 119/73 94 12/06/16 00:00 76 12/05/16 22:00 76 27 123/70 93 12/05/16 22:00 76 12/05/16 20:00 97.7 76 20 119/69 92 12/05/16 20:00 72 12/05/16 19:30 93 Nasal Cannula 4.50 12/05/16 18:00 74 27 128/75 94 12/05/16 18:00 70 12/05/16 16:00 70 12/05/16 16:00 98.2 70 17 111/68 92 12/05/16 14:00 68 16 99/61 96 12/05/16 14:00 66 I/O 12/05/16 12/05/16 12/05/16 12/06/16 12/06/16 12/06/16 07:00 15:00 23:00 07:00 15:00 23:00 Intake Total 1217 ml 1041 ml 1662 ml 0 ml Output Total 450 ml 1050 ml 1750 ml Balance 767 ml -9 ml -88 ml 0 ml Intake Oral 960 ml 0 ml IV Total 1217 ml 1041 ml 702 ml Output Urine Total 450 ml 1050 ml 1750 ml # Bowel Movements 0 Result Diagram: 12/05/16 0600 12/06/16 [address] Angiography 12/06/16 0000 Signed Impressions: Service Date/Time: Tuesday, December 06, 2016 12:15 - CONCLUSION: 1. No evidence of pulmonary embolism. 2. Bibasilar patchiness consistent with atelectasis and/ or mild infiltrates. Clinical correlation is recommended. 3. Scattered emphysematous changes predominantly within the upper lobes. 4. Elevation of the right hemidiaphragm. 5. Enlarged fatty liver. Fabio Buchanan MD Chest X-Ray 12/05/16 0000 Signed Impressions: Service Date/Time: Monday, December 05, 2016 13:31 - CONCLUSION: 1. Bibasilar atelectasis. 2. Persistent elevation right hemidiaphragm. Fabio Buchanan MD Objective Remarks GENERAL: Well-appearing male in no acute distress. SKIN: Focused skin assessment warm/dry. HEAD: Normocephalic. EYES:No scleral icterus. No injection or drainage. ENT: Mucous membranes pink and moist. NECK: Supple. CARDIOVASCULAR: Tachycardic. No murmur appreciated. RESPIRATORY: No accessory muscle use. Clear to auscultation. Breath sounds equal bilaterally. GASTROINTESTINAL: Abdomen soft, non-tender, nondistended. MUSCULOSKELETAL: No obvious deformities. No edema. NEUROLOGICAL: Awake and alert. 4+ out of 5 strength in the bilateral upper lower extremity's. 3/5 strength in the right lower extremity, 4/5 in the right. Normal speech. PSYCHIATRIC: Teary-eyed. Medications and IVs Current Medications Medications (Trade) Dose Ordered Sig/Elma Route Start Time Stop Time Status Last Admin (Zoloft) 25 mg DAILY PO 12/05/16 09:00 12/06/16 08:23 (Zofran Inj) 4 mg Q6H PRN IV 12/04/16 16:45 (Tylenol) 650 mg Q4H PRN PO 12/04/16 16:45 (Xanax) 1 mg Q8H PRN PO 12/04/16 17:15 12/04/16 19:42 (NS Flush) 2 ml UNSCH PRN IV FLUSH 12/04/16 17:15 (NS Flush) 2 ml BID IV FLUSH 12/04/16 21:00 12/06/16 08:25 (Tylenol) 650 mg Q4H PRN PO 12/04/16 17:15 (Tylenol) 650 mg Q6H PRN PO 12/04/16 17:15 (Roxicodone) 10 mg Q4H PRN PO 12/04/16 17:15 12/04/16 19:42 (Roxicodone) 5 mg Q4H PRN PO 12/04/16 17:15 (Narcan Inj) 0.4 mg UNSCH PRN IV 12/04/16 17:15 (Patricia-Colace) 1 tab BID PO 12/04/16 21:00 12/05/16 20:54 Oxycodone HCl 30 mg 30 mg Q8HR PRN PO 12/04/16 17:15 Potassium Chloride 100 ml @ 50 mls/hr Q2H PRN IV 12/05/16 10:15 (KCl 20 Meq Premix Inj) 100 ml @ 50 mls/hr Q2H PRN IV 12/05/16 10:15 12/06/16 10:57 Potassium Bicarb/ Potassium Chloride 50 meq 50 meq UNSCH PRN PO 12/05/16 10:15 Potassium Chloride 100 ml @ 25 mls/hr UNSCH PRN IV 12/05/16 10:15 Potassium Chloride 100 ml @ 50 mls/hr Q2H PRN IV 12/05/16 10:15 (Magnesium Sulfate Inj/NS Inj) 100 ml @ 50 mls/hr UNSCH PRN IV 12/05/16 10:15 Magnesium Oxide 800 mg 800 mg UNSCH PRN PO 12/05/16 10:15 (Magnesium Sulfate Inj/NS Inj) 100 ml @ 50 mls/hr UNSCH PRN IV 12/05/16 10:15 Potassium Phosphate 2000 mg 2,000 mg Q4H PRN PO 12/05/16 10:15 (Sodium Phosphate Inj/NS 250 ml Inj) 250 ml @ 42 mls/hr UNSCH PRN IV 12/05/16 10:15 Potassium Phosphate 2000 mg 2,000 mg UNSCH PRN PO/TUBE 12/05/16 10:15 (Potassium Phosphate Inj/NS 250 ml Inj) 260 ml @ 42 mls/hr UNSCH PRN IV 12/05/16 10:15 Miscellaneous Information Patient in critical care unit? Ass... Q361D .XX 12/06/16 04:00 12/06/16 04:00 (Chlorhexidine 2% Cloth) 3 pack DAILY@04 TOPICAL 12/06/16 04:00 12/10/16 04:01 12/06/16 04:00 Chlorhexidine Gluconate 3 pack 3 pack UNSCH PRN TOPICAL 12/06/16 07:00 12/11/16 06:50 (D5-1/2 NS + KCl 20 Meq Inj) 1,000 ml @ 100 mls/hr Q10H IV 12/06/16 11:45 12/06/16 21:44 12/06/16 11:51 A/P Assessment and Plan Severe hypokalemia Chronic problem. The patient does not take potassium supplementation regularly for whatever reason. Hypokalemia may be secondary to renal dysfunction caused by early lithium exposure as a child. Potassium level currently improved to 3.2 from 1.8. - continue IV and PO KCl replacement as needed. - continue IVFs with 20 meq with KCl x 1L. - telemetry. - follow BMP. Hypoxemia CXR unremarkable. D-dimer elevated. CTA showed: No evidence of pulmonary embolism; Bibasilar patchiness consistent with atelectasis and/or mild infiltrates; Scattered emphysematous changes predominantly within the upper lobes. Suspect underlying COPD. - standing and as needed Duonebs. - start IV doxycycline. - sputum culture and gram stain. - incentive spirometry. - respiratory home oxygen walk test requested. Vitamin B12 deficiency Vitamin B12 level 254. Likely contributing to weakness. - Vitamin B-12 injection IM 1. Hypomagnesemia/ hypophosphatemia Resolved with IV supplementation. - Continue to monitor. 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 The patient is interested in hospice but does not want to pursue it quite yet. - supportive care. - ADAT. - PT/ OT. - case management consult. The pt would like to pursue home health care. - pain control with a bowel regimen. - Xanax as needed for anxiety. Pancytosis S/t above. - monitor CBC as needed. Hyperglycemia Possibly a stress reaction. - follow BMP. PPx: SCDs Discharge Planning Transfer to the floor. Anticipate discharge home with home health care in the morning. Cameron Mistry DO Dec 06, 2016 13:21
[2016-12-06] MEDS ORDERED: RESP: ALBUTEROL 2.5 MG/IPRATROPIUM 0.5 MG NEB (PRN) NEB (13:30)
[2016-12-06] MEDS: DOXYCYCLINE INJ 100 MG in SODIUM CHLORIDE 0.9% INJ 100 ML IV SCH (13:34)
[2016-12-06] MEDS: RESP: ALBUTEROL 2.5 MG/IPRATROPIUM 0.5 MG NEB (SCH) NEB ×2 (13:41→19:41)
[2016-12-06] MEDS: MAGNESIUM SULFATE INJ 2 GM in SODIUM CHLORIDE 0.9% INJ 96 ML IV PRN ×2 (13:50→14:06)
[2016-12-06 15:05] LABS: POTASSIUM 3.3 MEQ/L (3.5-5.1)
[2016-12-06 15:08] LABS: BICARBONATE 31.6 MEQ/L (21.0-32.0)
[2016-12-07] VITALS (7 sets, daily range): BP systolic 107–118; BP diastolic 70–77; PULSE 75–115; RESP 17–20; TEMP 97.1–98.7; O2SAT 90–94
[2016-12-07] MEDS: DOXYCYCLINE INJ 100 MG in SODIUM CHLORIDE 0.9% INJ 100 ML IV SCH ×2 (01:35→13:05)
[2016-12-07] MEDS: CHLORHEXIDINE GLUCONATE 2 % 1 PACK (2 CLOTHS)(taper/protocol) TOPICAL SCH (04:00)
[2016-12-07 06:39] LABS: AUTOMATED NEUTROPHIL # 17.6 TH/MM3 (1.8-7.7); BASOPHIL # 0.3 TH/MM3 (0-0.2); BASOPHIL % 0.9 % (0.0-2.0); EOSINOPHIL # 0.4 TH/MM3 (0-0.4); EOSINOPHIL % 1.4 % (0.0-4.0); HEMATOCRIT 49.5 % (39.0-51.0); LYMPH % 31.6 % (9.0-44.0); LYMPHOCYTE # 8.9 TH/MM3 (1.0-4.8); MEAN CELL VOLUME 91.6 FL (80.0-100.0); MEAN CORPUSCULAR HEMOGLOBIN 30.7 PG (27.0-34.0); MEAN CORPUSCULAR HGB CONC 33.5 % (32.0-36.0); MONO % 3.5 % (0.0-8.0); NEUT % 62.6 % (16.0-70.0); PLATELET COUNT 529 TH/MM3 (150-450); RED BLOOD COUNT 5.41 MIL/MM3 (4.50-5.90); RED CELL DISTRIBUTION WIDTH 14.7 % (11.6-17.2); WHITE BLOOD COUNT 28.2 TH/MM3 (4.0-11.0)
[2016-12-07 06:47] LABS: BICARBONATE 29.6 MEQ/L (21.0-32.0)
[2016-12-07 06:52] LABS: HEMO FLAGS AUTO DIFF
[2016-12-07] MEDS: RESP: ALBUTEROL 2.5 MG/IPRATROPIUM 0.5 MG NEB (SCH) NEB ×3 (07:42→19:51)
[2016-12-07 08:03] LABS: BANDS 3 % (0-6); EOSINOPHILS 2 % (0-4); NEUTROPHIL # MANUAL DIFF 18.6 TH/MM3 (1.8-7.7); POLYS (SEG NEUTROPHILS) 63 % (16-70); WBC DIFF SAMPLE 100
[2016-12-07 08:04] LABS: PLATELET ESTIMATE SMEAR HIGH (NORMAL); PLATELET MORPHOLOGY NORMAL (NORMAL); SCAN/DIFF FINAL DIFF MANUAL
[2016-12-07] MEDS ORDERED: OXYGENDME NAS.CANULA (08:40)
--- NOTE | 2016-12-07 08:59 | HHI.PR ---
Subjective Remarks The patient was upset because he said his 8-year-old son kept asking if he was going to . He said he would need home oxygen. He said that he has developed a dry cough. He was about to work with physical therapy. He said he would be willing to talk about home hospice. Objective Vitals Vital Signs Date Time Temp Pulse Resp B/P Pulse Ox O2 Delivery O2 Flow Rate FiO2 12/07/16 08:00 98.5 95 19 116/77 93 12/07/16 07:49 94 Nasal Cannula 6.00 12/07/16 04:00 97.7 97 18 118/75 90 12/06/16 23:15 97.6 98 24 153/86 93 12/06/16 21:05 92 Nasal Cannula 6.00 12/06/16 20:00 98 12/06/16 20:00 98.9 110 28 140/79 90 12/06/16 16:00 97.8 84 19 134/82 92 12/06/16 15:30 3.00 12/06/16 15:00 84 21 145/80 93 12/06/16 14:00 84 23 156/77 92 12/06/16 13:00 80 140/83 93 12/06/16 12:00 98.2 74 102/57 93 12/06/16 11:00 78 127/81 93 12/06/16 10:00 90 12/06/16 09:01 78 23 102/75 89 I/O 12/06/16 12/06/16 12/06/16 12/07/16 12/07/16 12/07/16 07:00 15:00 23:00 07:00 15:00 23:00 Intake Total 0 ml 2709 ml Output Total 3375 ml 400 ml Balance 0 ml -666 ml -400 ml Intake Oral 0 ml 960 ml IV Total 1749 ml Output Urine Total 3375 ml 400 ml # Voids 2 # Bowel Movements 1 0 Result Diagram: 12/07/16 0530 12/07/16 [address] Angiography 12/06/16 0000 Signed Impressions: Service Date/Time: Tuesday, December 06, 2016 12:15 - CONCLUSION: 1. No evidence of pulmonary embolism. 2. Bibasilar patchiness consistent with atelectasis and/ or mild infiltrates. Clinical correlation is recommended. 3. Scattered emphysematous changes predominantly within the upper lobes. 4. Elevation of the right hemidiaphragm. 5. Enlarged fatty liver. Fabio Buchanan MD Chest X-Ray 12/05/16 0000 Signed Impressions: Service Date/Time: Monday, December 05, 2016 13:31 - CONCLUSION: 1. Bibasilar atelectasis. 2. Persistent elevation right hemidiaphragm. Fabio Buchanan MD Objective Remarks GENERAL: Well-appearing male in no acute distress. SKIN: Focused skin assessment warm/dry. HEAD: Normocephalic. EYES:No scleral icterus. No injection or drainage. ENT: Mucous membranes pink and moist. NECK: Supple. CARDIOVASCULAR: Tachycardic. No murmur appreciated. RESPIRATORY: Mild rhonchi appreciated. GASTROINTESTINAL: Abdomen soft, non-tender, nondistended. MUSCULOSKELETAL: No obvious deformities. No edema. NEUROLOGICAL: Awake and alert. 4+ out of 5 strength in the bilateral upper lower extremity's. 3/5 strength in the right lower extremity, 4/5 in the right. Normal speech. PSYCHIATRIC: Flattened affect. Medications and IVs Current Medications Medications (Trade) Dose Ordered Sig/Elma Route Start Time Stop Time Status Last Admin (Zoloft) 25 mg DAILY PO 12/05/16 09:00 12/06/16 08:23 (Zofran Inj) 4 mg Q6H PRN IV 12/04/16 16:45 (Tylenol) 650 mg Q4H PRN PO 12/04/16 16:45 (Xanax) 1 mg Q8H PRN PO 12/04/16 17:15 12/04/16 19:42 (NS Flush) 2 ml UNSCH PRN IV FLUSH 12/04/16 17:15 12/07/16 01:35 (NS Flush) 2 ml BID IV FLUSH 12/04/16 21:00 12/06/16 21:56 (Tylenol) 650 mg Q4H PRN PO 12/04/16 17:15 (Tylenol) 650 mg Q6H PRN PO 12/04/16 17:15 (Roxicodone) 10 mg Q4H PRN PO 12/04/16 17:15 12/06/16 21:55 (Roxicodone) 5 mg Q4H PRN PO 12/04/16 17:15 (Narcan Inj) 0.4 mg UNSCH PRN IV 12/04/16 17:15 (Patricia-Colace) 1 tab BID PO 12/04/16 21:00 12/06/16 21:56 (OxyCONTIN CR) 30 mg Q8HR PRN PO 12/04/16 17:15 Miscellaneous Information Patient in critical care unit? Ass... Q361D .XX 12/06/16 04:00 12/06/16 04:00 (Chlorhexidine 2% Cloth) 3 pack DAILY@04 TOPICAL 12/06/16 04:00 12/10/16 04:01 12/06/16 04:00 Chlorhexidine Gluconate 3 pack 3 pack UNSCH PRN TOPICAL 12/06/16 07:00 12/11/16 06:50 (Vibramycin Inj/ NS Inj) 100 ml @ 100 mls/hr Q12H IV 12/06/16 14:00 12/07/16 01:35 (KCl) 40 meq Q4HR PO 12/07/16 12:00 12/07/16 16:01 A/P Assessment and Plan Severe hypokalemia Chronic problem. The patient does not take potassium supplementation regularly for whatever reason. Hypokalemia may be secondary to renal dysfunction caused by early lithium exposure as a child. Potassium level currently improved to 3 from 1.8. - continue PO KCl replacement as needed. Will need to be discharged on supplementation. - telemetry. - follow BMP. Hypoxemia CXR unremarkable. D-dimer elevated. CTA showed: No evidence of pulmonary embolism; Bibasilar patchiness consistent with atelectasis and/or mild infiltrates; Scattered emphysematous changes predominantly within the upper lobes. Suspect underlying COPD. Will need home oxygen per walk test. - standing and as needed Duonebs. - started IV doxycycline. - sputum culture and gram stain. - incentive spirometry. - start IV Solumedrol. Vitamin B12 deficiency Vitamin B12 level 254. Likely contributing to weakness. - Vitamin B-12 injection IM 1. Hypomagnesemia/ hypophosphatemia Resolved with IV supplementation. - Continue to monitor. 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 The patient is interested in home hospice. - supportive care. - [facility]. - PT/ OT. - case management consult. The pt would like to pursue home health care. - pain control with a bowel regimen. - Xanax as needed for anxiety. - hospice consult has been requested. Pancytosis S/t above. - monitor CBC as needed. Hyperglycemia Possibly a stress reaction. - follow BMP. PPx: SCDs Discharge Planning Awaiting hospice consult Cameron Mistry DO Dec 07, 2016 08:58
[2016-12-07] MEDS: DOCUSATE SODIUM 50 MG/SENNA 8.6 MG TAB PO SCH ×2 (09:00→21:00)
[2016-12-07] MEDS: SERTRALINE HCL 50 MG TAB PO SCH (10:51)
[2016-12-07] MEDS: POTASSIUM CHLORIDE 20 MEQ CONTROLLED RELEASE TAB PO SCH ×2 (10:54→15:03)
[2016-12-07] MEDS: methylPREDNISolone SOD SUCC 40 MG/1 ML VIAL IV PUSH SCH ×3 (10:59→21:02)
[2016-12-07] MEDS: SODIUM CHLORIDE 0.9% FLUSH 10 ML FLUSH IV FLUSH SCH ×2 (11:00→21:02)
[2016-12-08] VITALS: BP 101/64; PULSE 106; RESP 18; TEMP 97.6; O2SAT 93
[2016-12-08] MEDS: methylPREDNISolone SOD SUCC 40 MG/1 ML VIAL IV PUSH SCH ×2 (02:20→09:16)
[2016-12-08] MEDS: DOXYCYCLINE INJ 100 MG in SODIUM CHLORIDE 0.9% INJ 100 ML IV SCH (02:21)
[2016-12-08 04:00] VITALS: BP 112/75; PULSE 94; RESP 20; TEMP 97.3; O2SAT 90
[2016-12-08] MEDS: CHLORHEXIDINE GLUCONATE 2 % 1 PACK (2 CLOTHS)(taper/protocol) TOPICAL SCH (04:00)
[2016-12-08 06:40] LABS: POTASSIUM 3.3 MEQ/L (3.5-5.1)
[2016-12-08 06:42] LABS: BICARBONATE 28.5 MEQ/L (21.0-32.0); MAGNESIUM 1.7 MG/DL (1.5-2.5)
[2016-12-08 07:32] VITALS: O2SAT 94
[2016-12-08] MEDS: RESP: ALBUTEROL 2.5 MG/IPRATROPIUM 0.5 MG NEB (SCH) NEB (07:33)
[2016-12-08 08:00] VITALS: BP 111/73; PULSE 108; RESP 19; TEMP 97.4; O2SAT 96
[2016-12-08] MEDS: SODIUM CHLORIDE 0.9% FLUSH 10 ML FLUSH IV FLUSH SCH (08:36)
[2016-12-08] MEDS ORDERED: POTASSIUM CHLORIDE 20 MEQ CONTROLLED RELEASE TAB PO SCH (09:00)
[2016-12-08] MEDS: DOCUSATE SODIUM 50 MG/SENNA 8.6 MG TAB PO SCH (09:00)
[2016-12-08] MEDS: SERTRALINE HCL 50 MG TAB PO SCH (09:17)
[2016-12-08] MEDS ORDERED: SODIUM PHOSPHATE INJ 30 MMOL in SODIUM CHLOR 0.9% 250 ML INJ 250 ML IV ONE (10:00)
[2016-12-08] MEDS ORDERED: POTA-163 PO (11:34)
[2016-12-08] MEDS ORDERED: K-PHTAB PO (11:34)
[2016-12-08] MEDS ORDERED: MAGN400T2 PO (11:34)
[2016-12-08] MEDS ORDERED: DOXY100C PO (11:35)
--- NOTE | 2016-12-08 11:38 | HHI.DCPOC ---
Discharge Care Plan Diagnosis: (1) Hypoxemia (2) Failure to thrive in adult (3) Hypokalemia (4) Large granular lymphocytosis (5) Hypomagnesemia (6) Hypophosphatemia Goals to Promote Your Health * To prevent worsening of your condition and complications * To maintain your health at the optimal level Directions to Meet Your Goals Take your medications as prescribed Follow your dietary instruction Follow activity as directed Keep your appointments as scheduled Take your immunizations and boosters as scheduled If your symptoms worsen call your PCP, if no PCP go to Urgent Care Center or Emergency Room Smoking is Dangerous to Your Health. Avoid second hand smoke Call the 24-hour hour crisis hotline for domestic abuse at Cameron Mistry DO Dec 08, 2016 11:38
[2016-12-08] MEDS ORDERED: VENTAER INH (11:39)
--- NOTE | 2016-12-08 11:45 | HHI.DS ---
Discharge Summary Admission Date Dec 04, 2016 at 16:37 Discharge Date: Dec 08, 2016 Admitting Diagnosis severe hypokalemia. (1) Large granular lymphocytosis ICD Code: D72.820 (2) Failure to thrive in adult ICD Code: R62.7 Diagnosis: Principal (3) Hypophosphatemia ICD Code: E83.39 (4) Hypoxemia ICD Code: R09.02 (5) Hypomagnesemia ICD Code: E83.42 (6) Hypokalemia ICD Code: E87.6 Diagnosis: Principal Procedures None Brief History - From Admission The patient is a 50-year-old male was diagnosed with T-cell granular lymphocytosis who is presenting to the hospital with profound weakness. The patient says he was diagnosed with cancer about a year and a half ago. He said that he was evaluated and found not to be a candidate for chemotherapy. He was also found not to be a candidate for bone marrow transplant. He says he has not candidate for any treatment and was told he has about 18 months left to live. He says he lives at home and generally doesn't ambulate with a walker but he will when he feels really weak. He said this morning he found all of a sudden he couldn't pull himself up. He had significantly increased weakness in his upper and lower extremities. The patient says that he does not take potassium pills regularly even though he was told he should. He does endorse significant weight loss recently. He says he has had many new lesions popping up all over his body. He has not been sleeping well. He has recently been prescribed anxiety medication on top of the chronic pain medications he receives. He denies any shortness of breath. He does have generalized body pain on a regular basis. CBC/BMP: 12/07/16 0530 12/08/16 0530 Significant Findings Laboratory Tests Test 12/05/16 12/06/16 12/06/16 12/06/16 14:50 04:10 10:46 14:45 Potassium Level 3.0 MEQ/L 3.2 MEQ/L 3.3 MEQ/L (3.5-5.1) (3.5-5.1) (3.5-5.1) Blood Urea Nitrogen 6 MG/DL (7-18) 5 MG/DL (7-18) 6 MG/DL (7-18) Estimat Glomerular Filtration 80 ML/MIN (>89) 71 ML/MIN (>89) Rate Random Glucose 167 MG/DL 173 MG/DL (74-106) (74-106) D-Dimer Quantitative (PE/DVT) 0.62 MG/L FEU (0.00-0.50) Test 12/07/16 12/08/16 05:30 05:30 White Blood Count 28.2 TH/MM3 (4.0-11.0) Platelet Count 529 TH/MM3 (150-450) Neutrophils # (Auto) 17.6 TH/MM3 (1.8-7.7) Lymphocytes # (Auto) 8.9 TH/MM3 (1.0-4.8) Monocytes # (Auto) 1.0 TH/MM3 (0-0.9) Basophils # (Auto) 0.3 TH/MM3 (0-0.2) Neutrophils # (Manual) 18.6 TH/MM3 (1.8-7.7) Platelet Estimate HIGH (NORMAL) Potassium Level 3.0 MEQ/L 3.3 MEQ/L (3.5-5.1) (3.5-5.1) Blood Urea Nitrogen 4 MG/DL (7-18) Estimat Glomerular Filtration 85 ML/MIN (>89) 79 ML/MIN (>89) Rate Random Glucose 163 MG/DL (74-106) Calcium Level 10.3 MG/DL (8.5-10.1) Phosphorus Level 1.8 MG/DL (2.5-4.9) Imaging Last Impressions CT Angiography 12/06/16 0000 Signed Impressions: Service Date/Time: Tuesday, December 06, 2016 12:15 - CONCLUSION: 1. No evidence of pulmonary embolism. 2. Bibasilar patchiness consistent with atelectasis and/ or mild infiltrates. Clinical correlation is recommended. 3. Scattered emphysematous changes predominantly within the upper lobes. 4. Elevation of the right hemidiaphragm. 5. Enlarged fatty liver. Fabio Buchanan MD Chest X-Ray 12/05/16 0000 Signed Impressions: Service Date/Time: Monday, December 05, 2016 13:31 - CONCLUSION: 1. Bibasilar atelectasis. 2. Persistent elevation right hemidiaphragm. Fabio Buchanan MD PE at Discharge GENERAL: Well-appearing male in no acute distress. SKIN: Focused skin assessment warm/dry. HEAD: Normocephalic. EYES:No scleral icterus. No injection or drainage. ENT: Mucous membranes pink and moist. NECK: Supple. CARDIOVASCULAR: Tachycardic. No murmur appreciated. RESPIRATORY: Mild rhonchi appreciated. GASTROINTESTINAL: Abdomen soft, non-tender, nondistended. MUSCULOSKELETAL: No obvious deformities. No edema. NEUROLOGICAL: Awake and alert. 4+ out of 5 strength in the bilateral upper lower extremity's. 3/5 strength in the right lower extremity, 4/5 in the right. Normal speech. PSYCHIATRIC: Mood and affect appropriate. Pt update on day of discharge The patient said he talked with hospice earlier this morning and has signed up with them. He said his oxygen saturation got low overnight. He was wondering if he would be sent home with potassium supplementation. He worked with physical therapy earlier. Hospital Course Severe hypokalemia Chronic problem. The patient does not take potassium supplementation regularly as he is supposed to. He was continued on IV and PO KCl replacement as needed. He was monitored on telemetry. He will be discharged on supplementation. He will have a follow-up BMP in 2-3 days. Hypoxemia CXR unremarkable. D-dimer elevated. CTA showed: No evidence of pulmonary embolism; Bibasilar patchiness consistent with atelectasis and/or mild infiltrates; Scattered emphysematous changes predominantly within the upper lobes. He requires home oxygen per walk test. He received standing and as needed Duonebs. He was started on IV doxycycline. He received incentive spirometry. He was started on IV Solumedrol. He will complete a prednisone taper. He will also complete a course of doxycycline. He will use albuterol as needed. He will be provided with home oxygen. Vitamin B12 deficiency Vitamin B12 level 254. He received a vitamin B-12 injection IM 1. Hypomagnesemia/ hypophosphatemia He will be discharged on supplementation. He will have a repeat BMP in 2-3 days. 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 He worked with PT/ OT. Case management was consulted. The pt received pain control with a bowel regimen. He received Xanax as needed for anxiety. A hospice consult was placed and the pt was interested in pursuing home hospice. Pt Condition on Discharge: Stable Discharge Disposition: Hospice/ Home Discharge Time: > 30 minutes Discharge Instructions DIET: Follow Instructions for: As Tolerated, No Restrictions Activities you can perform: Weight Bearing as Aly Follow up Referrals: PCP Follow-up - 1 Week New Orders: BASIC METABOLIC PROF - 2-3 Days PHOSPHORUS (PO4) - 2-3 Days New Medications: Albuterol 18 GM Inh (Ventolin Hfa 18 GM Inh) 90 Mcg/Act Aer 2 PUFF INH Q4H PRN SHORTNESS OF BREATH #1 Ref 0 INHALER Doxycycline Hyclate (Doxycycline Hyclate) 100 Mg Cap 100 MG PO BID Infection Days 5 Ref 0 CAP Magnesium Oxide (Magnesium Oxide) 400 Mg Tab 400 MG PO DAILY Nutritional Supplement #30 Ref 0 TAB Oxygen (O2) (Oxygen (O2)) Device 2 LITER RAYMUNDO.CANULA CONTINUOUS Oxygen Concentrator Portable Gaseous 2 L/min via Nasal Canula Continuous For 99 months Prevent Hypoxemia #2 CYLINDER Potassium Chloride ER (Potassium Chloride ER) 20 Meq Tab 20 MEQ PO BID Electrolyte Replacement #60 Ref 0 TAB Potassium Phosphate Monobasic (K-Phos) 500 Mg Tab 500 MG PO PCHS Electrolyte Replacement #120 Ref 0 TAB Prednisone (21) 10 mg tab Dose Pack (Prednisone (21) 10 mg tab Dose Pack) 10 Mg Pack 10 MG PO DIRECTED Broncospasm #1 Ref 0 DSPK Walker Rolling/GetGo (Walker Rolling/GetGo) 1 Mis Mis 1 EA .ROUTE DIRECTED #1 EA Wheelchair (Wheelchair) 1 Mis Mis 1 EA .ROUTE DIRECTED #1 Ref 0 EA Continued Medications: Alprazolam (Xanax) 2 Mg Tab 2 MG PO Q8H PRN ANXIETY Ref 0 TAB Oxycodone ER (Oxycontin) 30 Mg Tab 30 MG PO Q8HR Pain Management Ref 0 TAB Oxycodone-Acetaminophen (Percocet) 10-325 mg Tab 1 TAB PO TID PRN PAIN Ref 0 TAB Sertraline (Zoloft) 25 Mg Tab 25 MG PO DAILY #30 Ref 0 TAB ([cancer meds]) Discontinued Medications: Metronidazole (Flagyl) 500 Mg Tab 500 MG PO 5 TIMES A DAY Infection Ref 0 TAB Cameron Mistry DO Dec 08, 2016 11:45
[2016-12-08 12:00] VITALS: BP 118/89; PULSE 90; RESP 19; TEMP 97.6; O2SAT 94
[2016-12-08] MEDS ORDERED: PRED10PA PO (12:11)
[2016-12-08] MEDS ORDERED: BATH/SHOWER SEA1 MIS (13:12)
--- NOTE | 2016-12-08 15:31 | HHI.FF ---
Face to Face Verification Diagnosis: (1) Large granular lymphocytosis (2) Failure to thrive in adult (3) Hypophosphatemia (4) Hypoxemia (5) Hypomagnesemia (6) Hypokalemia Home Health Nursing Order: Medical education Signs/symptoms of disease process Oxygen administration education Medication education-adverse effect Wound care and dressing changes Nursing assessment with vital signs I have seen patient Madhu Ugarte on 12/08/16. My clinical findings support the need for the requested home health care services because: Ltd mobility - disease progression Patient has SOB Deconditioned w/ increased weakness Limited ability to care for self Need for psychosocial assistance I certify that my clinical findings support that this patient is homebound because: Unsteady gait/balance Unsafe to leave home unassisted Cameron Mistry DO Dec 08, 2016 15:31
== END 2016-12-08 13:21 | disposition home or self-care (01) | DRG 641 ==
LOC: PHED 14:38 → PHEDA 16:37 → PHICU 17:51 → PH3B 12-06 22:46
PROVIDERS: ADMIT Hospitalist; ATTEND Hospitalist
DX: E87.6 Hypokalemia (principal); E83.42 Hypomagnesemia; I10 Essential (primary) hypertension; D72.820 Lymphocytosis (symptomatic); F31.9 Bipolar disorder, unspecified; F41.9 Anxiety disorder, unspecified; R32 Unspecified urinary incontinence; Z86.73 Personal history of transient ischemic attack (TIA), and cerebral infarction without residual deficits; Z85.72 Personal history of non-Hodgkin lymphomas; F17.210 Nicotine dependence, cigarettes, uncomplicated; R63.4 Abnormal weight loss; G89.29 Other chronic pain; E78.5 Hyperlipidemia, unspecified; Z90.81 Acquired absence of spleen; N28.9 Disorder of kidney and ureter, unspecified; R62.7 Adult failure to thrive; R73.9 Hyperglycemia, unspecified; I25.10 Atherosclerotic heart disease of native coronary artery without angina pectoris; E83.39 Other disorders of phosphorus metabolism; R09.02 Hypoxemia; E53.8 Deficiency of other specified B group vitamins; R05 Cough; R53.1 Weakness; Z95.5 Presence of coronary angioplasty implant and graft
CPT/HCPCS: 71010; 71275; 80048; 81001; 82607; 83735; 84100; 84443; 85007; 85027; 85379; 87641; 93005; 94150; 94620; 94640; 94664; 96374; J2920; J3420; J3475; J3480; J7050; Q9967